=== PATIENT | male | born 1935 | race Caucasian/White ===

== ENCOUNTER 2018-05-30 09:53 | Emergency (ER) | payer OTHER ==
[~2018-05-30 09:53] MED LIST: ASPI-1181 PO; ATOR20TA65 PO; CARV6.25 PO; CLOP75TA32 PO; FURO20TA4 PO; ISOS30TA6 PO; LEVO250T59 PO; LISI2.5T2 PO; POLY119P2 PO; TAMS-1 PO; TRAZ-185 PO; TRAZ-220 PO; [UNRECOGNIZED DRUG - CODE] PO
[2018-05-30] MEDS ORDERED: KETOROLAC TROMETHAMINE 60 MG/2 ML VIAL ONE (10:40)
== END 2018-05-30 11:48 | disposition home or self-care (01) ==
LOC: EDH 09:53
DX: S39.012A Strain of muscle, fascia and tendon of lower back, initial encounter (principal); I25.10 Atherosclerotic heart disease of native coronary artery without angina pectoris; E78.5 Hyperlipidemia, unspecified; I10 Essential (primary) hypertension; Z95.0 Presence of cardiac pacemaker; Z79.82 Long term (current) use of aspirin; Z79.899 Other long term (current) drug therapy; X58.XXXA Exposure to other specified factors, initial encounter; Y93.89 Activity, other specified; Y92.89 Other specified places as the place of occurrence of the external cause; Y99.8 Other external cause status
CPT/HCPCS: 74176; 96372; 99284; J1885

== ENCOUNTER 2019-07-26 07:50 | Emergency (ER) | payer OTHER ==
[~2019-07-26 07:50] MED LIST changes: -TRAZ-220 PO; +TRAZ-253 PO; +[UNRECOGNIZED DRUG - CODE] PO; -[UNRECOGNIZED DRUG - CODE] PO
[2019-07-26] MEDS ORDERED: TRAMADOL HCL 50 MG TABLET ONE (08:48)
== END 2019-07-26 09:39 | disposition home or self-care (01) ==
LOC: EDH 07:50
DX: M25.572 Pain in left ankle and joints of left foot (principal); I10 Essential (primary) hypertension; R60.0 Localized edema; I25.10 Atherosclerotic heart disease of native coronary artery without angina pectoris; E78.5 Hyperlipidemia, unspecified; Z96.89 Presence of other specified functional implants; Z87.891 Personal history of nicotine dependence
CPT/HCPCS: 73610

== ENCOUNTER 2020-06-29 15:54 | Emergency (ER) | payer OTHER ==
[~2020-06-29 15:54] MED LIST changes: -ASPI-1181 PO; +ASPI-1443 PO
== END 2020-06-29 18:00 | disposition home or self-care (01) ==
LOC: EDH 15:54
DX: S93.691A Other sprain of right foot, initial encounter (principal); I50.9 Heart failure, unspecified; I11.0 Hypertensive heart disease with heart failure; E78.5 Hyperlipidemia, unspecified; W01.0XXA Fall on same level from slipping, tripping and stumbling without subsequent striking against object, initial encounter; Y93.89 Activity, other specified; Y92.090 Kitchen in other non-institutional residence as the place of occurrence of the external cause; Y99.8 Other external cause status
CPT/HCPCS: 73590; 73630

== ENCOUNTER 2020-10-17 07:03 | Emergency (ER) | payer OTHER ==
[~2020-10-17 07:03] MED LIST changes: -ISOS30TA6 PO; +ISOS30TA92 PO; +LEVO250T43 PO; -LEVO250T59 PO; +LISI2.5T13 PO; -LISI2.5T2 PO
[2020-10-17] MEDS ORDERED: MORPHINE 4 MG SYG ONE (07:33)
[2020-10-17] MEDS ORDERED: ONDANSETRON 4MG INJ ONE (07:33)
[2020-10-17 07:37] LABS: BASOPHILS % (AUTO) 0.6 % (0.0-5.0); EOSINOPHILS % (AUTO) 2.5 % (0.0-8.0); HEMATOCRIT 40.2 % (42-54); LYMPHOCYTES % (AUTO) 30.1 % (21.0-51.0); MEAN CORPUSCULAR HEMOGLOBIN 30.4 pg (27.0-33.0); MEAN CORPUSCULAR HGB CONC 33.1 g/dL (32.0-36.0); MEAN CORPUSCULAR VOLUME 91.8 fL (79-99); MONOCYTES % (AUTO) 6.7 % (3.0-13.0); NEUTROPHILS % (AUTO) 59.7 % (40.0-77.0); PLATELET COUNT (AUTO) 242 K/uL (130-400); RED BLOOD CELL COUNT(AUTO) 4.38 MIL/uL (4.50-6.20); RED CELL DISTRIBUTION WIDTH 13.1 % (11.0-15.5); WHITE BLOOD COUNT (AUTO) 11.2 K/uL (4.8-10.8)
[2020-10-17 07:49] LABS: ALBUMIN 3.5 g/dL (3.5-5.0); BILIRUBIN,TOTAL 0.3 mg/dL (0.2-1.0); CREATININE 1.5 mg/dL (0.5-1.5); POTASSIUM 5.1 mmol/L (3.5-5.1); TOTAL PROTEIN, SERUM 6.5 g/dL (6.0-8.3)
== END 2020-10-17 10:11 | disposition home or self-care (01) ==
LOC: EDH 07:03
DX: M54.14 Radiculopathy, thoracic region (principal); E78.5 Hyperlipidemia, unspecified; I25.10 Atherosclerotic heart disease of native coronary artery without angina pectoris; F41.9 Anxiety disorder, unspecified; Z95.0 Presence of cardiac pacemaker
CPT/HCPCS: 36415; 71250; 80053; 84145; 85025; 96374; 96375; 99284; J2270; J2405